=== PATIENT | female | born 1990 | race Hispanic/Latino ===

== ENCOUNTER 2017-09-29 19:48 | Day surgery (SDC) | payer SELFPAY ==
[2017-09-29 20:18] VITALS: BMI 31.6
--- NOTE | 2017-09-29 20:47 | PDOC.LDHP ---
Labor and Delivery H&P Chief complaint: contractions HPI: 27 yo @ 38.4 by 6.1 week US and complicated by GDM presents for evaluation of contractions which started this afternoon around 4pm. Occurring approx every 10-15 minutes, denies LOF, vaginal bleeding, abdominal pain, headache, chest pain, sob, changes in vision. Currently reports that the contractions seem to be spacing out and she is feeling them less. Reports good movement. Did have intercourse earlier today. Current gestational age (weeks): 38 (+4) Due date: 10/09/17 Dating criteria: first trimester ultrasound Current complications: gestational diabetes Abnormal US findings: No Current medications: pre-sania vitamins Previous surgical history: none Social history: none - Physical Exam Vital signs reviewed and normal: yes (abnormal BP taken on small cuff, repeat WNL) General: NAD, breathing through contractions Heart: RRR Lungs: CTAB Abdomen: NTTP Extremeties: trace edema FHT: category 2 (re-assuring, baseline FHR 140), variable decelerations (X1, corrected wiith maternal position change), variability present [place] contractions every: 12 MINUTES - Vaginal Exam cm dilated: 1 (1.5 CM DILATED) Effacement: 25% Station: -3 (POSTERIOR, MEDIUM) - OB Labs Blood type: A RH: positive Antibody Screen: negative HIV: negative RPR: negative HEPSAg: negative 1 hour GCT: positive GBS: unknown Urine drug screen: not done Rubella: immune - Assessment L&D Assessment: term patient in labor (Labor check) Labor check - Plan Plan: observation in L&D -: Labor check: - po hydrate, recheck cervix in 2 hours - cont maternal monitoring - if no cervical change, re-assuring FHR monitoring and decreasing ctx frequency ok for dc to home - maternal position changes prn - GBS unknown, test performed, will send for results if pt to be admitted <Maurisio Santoro - Last Filed: 09/29/17 21:45> <Claudio Bhakta - Last Filed: 09/29/17 22:12> Allergies/Adverse Reactions: Allergies Allergy/AdvReac Type Severity Reaction Status Date / Time No Known Allergies Allergy Verified 09/29/17 20:18 Attending Addendum - Attending Addendum Date/Time: 09/29/17 8931 I personally evaluated the patient and discussed the management with Dr. Santoro. I agree with the History, Examination, Assessment and Plan. <Claudio Bhakta - Last Filed: 09/29/17 22:12>
== END 2017-09-29 23:03 | disposition home or self-care (01) ==
LOC: L&D/OP 19:48
PROVIDERS: ATTEND Obstetrics & Gynecology
DX: O47.1 False labor at or after 37 completed weeks of gestation (principal); O24.419 Gestational diabetes mellitus in pregnancy, unspecified control; Z3A.38 38 weeks gestation of pregnancy
CPT/HCPCS: 99282

== ENCOUNTER 2017-10-01 11:43 | Inpatient (IN) | payer MEDICAID, SELFPAY ==
[2017-10-01 12:17] VITALS: BMI 31.1
[2017-10-01] MEDS ORDERED: Lidocaine 1% (PF) 30 ML VIAL SC PRN (12:45)
[2017-10-01] MEDS ORDERED: Ondansetron HCl/PF 4 MG/2 ML Vial IVP PRN (12:45)
[2017-10-01] MEDS ORDERED: NS / Oxytocin 40 units/1000ml 1,000 ML IV PRN (12:45)
[2017-10-01] MEDS ORDERED: HYDROcodone/Acetaminophen 5/325 mg Tablet PO PRN ×2 (12:45)
[2017-10-01] MEDS ORDERED: Ibuprofen 800 MG TAB PO PRN (12:45)
[2017-10-01] MEDS ORDERED: Butorphanol Tartrate 1 MG/ML VIAL SLOW IVP PRN (12:45)
[2017-10-01] MEDS ORDERED: Lactated Ringer's 1,000 ML IV SCH (12:45)
[2017-10-01] MEDS ORDERED: NS / Oxytocin 40 units/1000ml 1,000 ML ONE (12:50)
[2017-10-01] MEDS ORDERED: Lidocaine 1% (PF) 30 ML VIAL ONE (12:50)
[2017-10-01 13:30] LABS: Hemoglobin 12.4 g/dL (12.0-16.0); Mean Corpuscular HGB CONC 32.7 g/dL (32.0-36.0); Mean Corpuscular Hemoglobin 28.4 pg (27.0-31.0); Mean Corpuscular Volume 86.9 fL (78.0-98.0); Mean Platelet Volume 12.2 fL (7.4-10.4); Platelet Count 126 thou/uL (130-400); RBC Distribution Width 13.1 % (11.5-14.5); Red Blood Cell (RBC) Count 4.37 mill/uL (4.20-5.40); White Blood Cell (WBC) Count 6.8 thou/uL (4.8-10.8)
[2017-10-01 14:12] LABS: HBSAg Index 0.14 S/CO (0-0.99); HIV (1/2) Antibody/Antigen Non-Reactive (NonReactive); HIV 1/2 INDEX 0.08 S/CO (<1.00); Hep B Surf Ag Non-Reactive S/CO (NonReactive)
--- NOTE | 2017-10-01 14:24 | PDOC.LDHP ---
Labor and Delivery H&P Chief complaint: contractions HPI: 27yo Dating criteria: last menstrual period (c/w 6.1wk US), first trimester ultrasound (6w1d) Current complications: gestational diabetes (diet controlled) Abnormal US findings: No (37% by Danielle on 09/06/17) Past Medical History: none Current medications: pre-sania vitamins Previous surgical history: none Allergies/Adverse Reactions: Allergies Allergy/AdvReac Type Severity Reaction Status Date / Time No Known Allergies Allergy Verified 09/29/17 20:18 Social history: none - Physical Exam Vital signs reviewed and normal: yes General: NAD, breathing through contractions Heart: RRR Lungs: nonlabored breathing Abdomen: NTTP Extremeties: no edema FHT: category 1 - Vaginal Exam cm dilated: 7 Effacement: 90% Station: -2 - OB Labs Blood type: A RH: positive Antibody Screen: negative HIV: negative RPR: negative HEPSAg: negative 1 hour GCT: positive (220) GBS: negative Urine drug screen: not done Rubella: immune - Assessment L&D Assessment: term patient in labor - Plan Plan: admit to L&D FMR OB H&P: A/P - Problem List (1) Term Current Visit: Yes Status: Acute Code(s): Z34.80 - ENCOUNTER FOR SUPRVSN OF NORMAL , UNSP TRIMESTER (2) Gestational diabetes Current Visit: Yes Status: Acute Code(s): O24.419 - GESTATIONAL DIABETES MELLITUS IN , UNSP CONTROL Qualifiers: Gestational diabetes mellitus control: diet-controlled Trimester: third trimester Qualified Code(s): O24.410 - Gestational diabetes mellitus in , diet controlled Assessment and Plan: accucheck 76 in labor Disposition: 27yo at 38.6wk here in active labor admit to L&D, expectant mgmt Discussion: Date/Time: 10/01/17 6468 This H&P was discussed with [Sunny Guerra] who agrees with the above documentation and plan.
[2017-10-01 16:37] LABS: Syphilis Antibody Nonreactive (Nonreactive); Syphilis Antibody Index 0.06 S/CO (<1.00 Non-Reactive)
--- NOTE | 2017-10-01 16:41 | PDOC.OPDEL ---
OB Operative/Delivery Note Delivery Dr/Surgeon: Dr. Louise Crump & Dr. Sunny Guerra Pre-Delivery Diagnosis: active labor Procedure/Post Delivery Dx: spontaneous vaginal delivery Weeks gestation: 38 (+4) Anesthesia: none - Findings A Sex: female - 1 min: 9 - 5 min: 9 - Additional Findings/Plan Placenta delivered: spontaneous Repaired Obstetrical Laceration: none Estimated blood loss: 300ml Post delivery plan: routine recovery <Louise Crump - Last Filed: 10/01/17 16:35> Operative Note - Operative Note Operative Note: 27yo F now @ 38.6wks delivered a viable F infant at 1440 on 10/01/17. Following an uneventful antepartum course, a vigorous female was delivered over an intact perineum in the OA position. Anterior Shoulder and then remainder of the body delivered. No nuchal cord. The head was held down and mouth and nares were bulb suctioned. After delayed cord clamping, cord was clamped and cut and cord blood collected. Placenta delivered intact with a 3 vessel cord noted. Fundal massage was performed and the fundus was firm, although noted to be above umbilicus. With fundal massage after delivery, no further bleeding noted. The cervix and vagina were inspected and found to be free of lacerations. went to nursery in good condition for routine care. Apgars were 9 & 9 at 1 & 5 minutes, respectively. Patient tolerated delivery well and went to after routine recovery/care. <Louise Crump - Last Filed: 10/01/17 16:35> Attending Addendum - Attending Addendum Date/Time: 10/02/17217 I personally evaluated the patient and discussed the management with Dr. Crump I agree with the History, Examination, Assessment and Plan documented above with any addition or exceptions noted below. I was present for the entire second and third stages of labor. <Sunny Guerra - Last Filed: 10/02/17 02:19>
--- NOTE | 2017-10-01 16:42 | PDOC.LDPN ---
Labor & Delivery Progress Note - Subjective Subjective: painful contractions - Objective Vital signs reviewed and normal: yes General: NAD, breathing through contractions Uterine fundus: non tender SVE: /-1 FHT: category 1 [place] contractions every: 2 min AROM: clear fluid - Assessment (1) Term Code(s): Z34.80 - ENCOUNTER FOR SUPRVSN OF NORMAL , UNSP TRIMESTER Current Visit: Yes Status: Acute (2) Gestational diabetes Code(s): O24.419 - GESTATIONAL DIABETES MELLITUS IN , UNSP CONTROL Current Visit: Yes Status: Acute Qualifiers: Gestational diabetes mellitus control: diet-controlled Trimester: third trimester Qualified Code(s): O24.410 - Gestational diabetes mellitus in , diet controlled Plan: continue plan of care -: expectant mgmt
[2017-10-01] MEDS ORDERED: diphenhydrAMINE 25 MG CAP PO PRN (17:52)
[2017-10-01] MEDS ORDERED: Adacel (T-DAP) 0.5 ML VIAL IM ONE (17:52)
[2017-10-01] MEDS ORDERED: Lanolin Ointment 7 GM TUBE TOP PRN (17:52)
[2017-10-01] MEDS ORDERED: Benzocaine/Menthol 20-0.5% 60 ML CAN TOP PRN (17:52)
[2017-10-01] MEDS ORDERED: Milk Of Magnesia 30 ML UDCUP PO PRN (17:52)
[2017-10-01] MEDS ORDERED: NS / Oxytocin 40 units/1000ml 1,000 ML IV SCH (17:52)
[2017-10-01] MEDS ORDERED: Bisacodyl 10 MG SUPP PR PRN (17:52)
[2017-10-01] MEDS ORDERED: Preparation H Ointment 28 GM TUBE PR PRN (17:52)
[2017-10-01] MEDS: Lactated Ringer's 1,000 ML IV SCH (18:22)
[2017-10-01] MEDS: Ferrous Sulfate 325 MG TAB PO SCH (18:24)
[2017-10-01] MEDS ORDERED: Methylergonovine 0.2 MG/ML VIAL IM SCH (20:00)
[2017-10-01] MEDS ORDERED: Misoprostol 200 MCG TAB ONE (20:19)
[2017-10-01] MEDS: Ibuprofen 800 MG TAB PO SCH (20:29)
[2017-10-01] MEDS ORDERED: Misoprostol 200 MCG TAB PR SCH (20:30)
[2017-10-01 21:13] LABS: Hemoglobin 9.4 g/dL (12.0-16.0); Mean Corpuscular HGB CONC 34.6 g/dL (32.0-36.0); Mean Corpuscular Hemoglobin 29.9 pg (27.0-31.0); Mean Corpuscular Volume 86.3 fL (78.0-98.0); Mean Platelet Volume 10.9 fL (7.4-10.4); Platelet Count 105 thou/uL (130-400); RBC Distribution Width 12.8 % (11.5-14.5); Red Blood Cell (RBC) Count 3.13 mill/uL (4.20-5.40); White Blood Cell (WBC) Count 9.9 thou/uL (4.8-10.8)
[2017-10-01] MEDS: Docusate Calcium (SURFAK) 240 MG CAP PO SCH (23:47)
[2017-10-02] MEDS: Lactated Ringer's 1,000 ML IV SCH ×4 (00:03→23:59)
[2017-10-02] MEDS: Methylergonovine 0.2 MG TAB PO SCH ×3 (02:14→14:16)
[2017-10-02] MEDS: Ibuprofen 800 MG TAB PO SCH ×3 (06:17→21:36)
[2017-10-02 06:26] LABS: Hemoglobin 9.5 g/dL (12.0-16.0); Mean Corpuscular HGB CONC 34.2 g/dL (32.0-36.0); Mean Corpuscular Hemoglobin 29.7 pg (27.0-31.0); Mean Corpuscular Volume 86.8 fL (78.0-98.0); Mean Platelet Volume 11.5 fL (7.4-10.4); Platelet Count 103 thou/uL (130-400); Red Blood Cell (RBC) Count 3.19 mill/uL (4.20-5.40); White Blood Cell (WBC) Count 7.2 thou/uL (4.8-10.8)
[2017-10-02] MEDS: Ferrous Sulfate 325 MG TAB PO SCH ×2 (09:19→17:09)
[2017-10-02] MEDS: Docusate Calcium (SURFAK) 240 MG CAP PO SCH ×2 (09:19→21:36)
[2017-10-02] MEDS: Prenatal Vitamin 1 TAB PO SCH (09:19)
--- NOTE | 2017-10-02 10:15 | PDOC.PP ---
Post Progress Note Post Day #: 1 Subjective: Pt currently feeling well. overnight, pt was noted to have acute PPH with clots passed in toilet. Exam performed by Dr. Meeks & Dr. Guerra and clots expelled. Methergine & Cytotec given. Hgb 9.5 -->9.4. Pt denies any dizziness, palpitations, weakness, or fatigue; but has not yet tried to get up. PO intake tolerated: yes Flatus: yes Ambulation: no Vital Signs (12 hours) Temp Pulse Resp BP 10/02/17 08:20 99.1 F 62 20 118/66 10/02/17 04:30 97.4 F L 60 20 126/57 L 10/02/17 00:00 99.2 F 62 18 131/77 10/01/17 22:15 98.6 F 63 18 130/77 Weight Weight 77.111 kg - Physical Examination General: NAD Cardiovascular: no m/r/g, RRR Respiratory: clear to auscultation bilaterally, non-labored breathing Abdominal: lochia (min lochia robra), no distention, appropriately TTP Fundus firm & at: 2cm below umbilicus Extremities: negative homans (B) Skin: no rash Perineum: clean & dry Neurological: no gross focal deficits Psychiatric: A&Ox3, normal affect Result Diagrams: 10/02/17 05:19 Additional Labs: Post Labs Blood Type A POSITIVE 10/01/17 12:32 Hep Bs Antigen Non-Reactive S/CO (NonReactive) 10/01/17 12:32 (1) Term Code(s): Z34.80 - ENCOUNTER FOR SUPRVSN OF NORMAL , UNSP TRIMESTER Status: Acute (2) Gestational diabetes Code(s): O24.419 - GESTATIONAL DIABETES MELLITUS IN , UNSP CONTROL Status: Acute QualifierTitle: Gestational diabetes mellitus control: diet-controlled Trimester: third trimester Qualified Code(s): O24.410 - Gestational diabetes mellitus in , diet controlled (3) Grand multiparity in labor and delivery, delivered Code(s): O09.40 - SUPERVISION OF W GRAND MULTIPARITY, UNSP TRIMESTER Status: Acute (4) hemorrhage Code(s): O72.1 - OTHER IMMEDIATE HEMORRHAGE Status: Acute QualifierTitle: hemorrhage type: unspecified Qualified Code(s) : O72.1 - Other immediate hemorrhage Comment: s/p methergine + cytotec - Assessment/Plan PPD #1 s/p with PPH overnight- No further bleeding at this time. Recheck H&H at 1200 to assure equilibration and no further drop. Encourage ambulation with assist to rule out symptomatic anemia. Will determine discharge course based on the above. <Louise Morse - Last Filed: 10/02/17 10:14> Vital Signs (12 hours) Temp Pulse Resp BP 10/02/17 12:20 98.9 F 69 20 116/58 L 10/02/17 08:20 99.1 F 62 20 118/66 10/02/17 08:00 99.1 F 62 20 10/02/17 04:30 97.4 F L 60 20 126/57 L Weight Weight 170 lb Result Diagrams: 10/02/17 05:19 Additional Labs: Post Labs Blood Type A POSITIVE 10/01/17 12:32 Hep Bs Antigen Non-Reactive S/CO (NonReactive) 10/01/17 12:32 - Assessment/Plan FACULTY NOTE: case reviewed this AM with Dr morse and Dr Guerra (wagon driller last night until 0800). We will recheck HCT AM run. Stable. <Jude Pratt - Last Filed: 10/02/17 12:39>
[2017-10-02 12:38] LABS: Hemoglobin 9.2 g/dL (12.0-16.0); Mean Corpuscular HGB CONC 33.3 g/dL (32.0-36.0); Mean Corpuscular Hemoglobin 29.2 pg (27.0-31.0); Mean Corpuscular Volume 87.7 fL (78.0-98.0); Mean Platelet Volume 11.4 fL (7.4-10.4); Platelet Count 101 thou/uL (130-400); RBC Distribution Width 13.2 % (11.5-14.5); Red Blood Cell (RBC) Count 3.14 mill/uL (4.20-5.40); White Blood Cell (WBC) Count 6.2 thou/uL (4.8-10.8)
--- NOTE | 2017-10-02 13:56 | PDOC.EVN ---
Event Note - Event Note Event Note: Rechecked pt again. Subj: feeling well. able to get up and ambulate without lightheadedness, weakness, or palpitations. Fundus remains firm. Very minimal vaginal bleeding without passage of clots. VSS. Laboratory Tests 10/02/17 10/02/17 05:19 12:13 Hgb 9.5 L 9.2 L Hct 27.7 L 27.6 L Discussed options with pt and she elects to stay the night and plan for d/c home tomorrow. <Louise Crump - Last Filed: 10/02/17 13:56> - Event Note Event Note: Faculty: noted plan of care. <Jude Pratt - Last Filed: 10/02/17 14:38>
[2017-10-02] MEDS ORDERED: NS w/ Oxytocin 10 units 500 ML IV SCH (14:15)
--- NOTE | 2017-10-02 14:40 | PDOC.EVN ---
Event Note - Event Note Event Note: Patient has had 3 follow up Hgb checks stable at 9. OK to skip AM draw for HGB.
[2017-10-03] MEDS: Lactated Ringer's 1,000 ML IV SCH (05:41)
[2017-10-03] MEDS: Ibuprofen 800 MG TAB PO SCH (06:13)
--- NOTE | 2017-10-03 08:18 | PDOC.PP ---
Post Progress Note Post Day #: 2 Subjective: Feeling well rested. Denies any concerns. No dizziness, fatigue, weakness. Ready to go home. PO intake tolerated: yes Flatus: yes Ambulation: yes Weight Weight 77.111 kg - Physical Examination General: NAD Cardiovascular: no m/r/g, RRR Respiratory: clear to auscultation bilaterally, non-labored breathing Abdominal: lochia (min lochia rubra), no distention, appropriately TTP Fundus firm & at: umbilicus Extremities: negative homans (B) Skin: no rash Neurological: no gross focal deficits Psychiatric: A&Ox3, normal affect Result Diagrams: 10/02/17 12:13 Additional Labs: Post Labs Blood Type A POSITIVE 10/01/17 12:32 Hep Bs Antigen Non-Reactive S/CO (NonReactive) 10/01/17 12:32 (1) Term Code(s): Z34.80 - ENCOUNTER FOR SUPRVSN OF NORMAL , UNSP TRIMESTER Status: Acute (2) Gestational diabetes Code(s): O24.419 - GESTATIONAL DIABETES MELLITUS IN , UNSP CONTROL Status: Acute QualifierTitle: Gestational diabetes mellitus control: diet-controlled Trimester: third trimester Qualified Code(s): O24.410 - Gestational diabetes mellitus in , diet controlled (3) Grand multiparity in labor and delivery, delivered Code(s): O09.40 - SUPERVISION OF W GRAND MULTIPARITY, UNSP TRIMESTER Status: Acute (4) hemorrhage Code(s): O72.1 - OTHER IMMEDIATE HEMORRHAGE Status: Acute QualifierTitle: hemorrhage type: unspecified Qualified Code(s) : O72.1 - Other immediate hemorrhage Comment: s/p methergine + cytotec - Assessment/Plan PPD #2 s/p with PPH - resolved w/ methergine + cytotec + fundal massage and no further bleeding. H&H stable, pt asymptomatic. Stable for d/c home on iron therapy and f/u outpt within 2 wks at [facility] or prn sooner. <Louise Crump - Last Filed: 10/03/17 08:18> Weight Weight 170 lb Result Diagrams: 10/02/17 12:13 Additional Labs: Post Labs Blood Type A POSITIVE 10/01/17 12:32 Hep Bs Antigen Non-Reactive S/CO (NonReactive) 10/01/17 12:32 <Sunny Guerra - Last Filed: 10/04/17 08:02> Attending Addendum - Attending Addendum Date/Time: 10/04/17 0802 I personally evaluated the patient and discussed the management with Dr. Crump I agree with the History, Examination, Assessment and Plan documented above with any addition or exceptions noted below. <Sunny Guerra - Jarad Filed: 10/04/17 08:02>
[2017-10-03] MEDS: Prenatal Vitamin 1 TAB PO SCH (08:22)
[2017-10-03] MEDS: Docusate Calcium (SURFAK) 240 MG CAP PO SCH (08:22)
[2017-10-03] MEDS: Ferrous Sulfate 325 MG TAB PO SCH (08:22)
[2017-10-03 08:55] VITALS: BP 127/60; TEMP 98
== END 2017-10-03 14:00 | disposition home or self-care (01) | DRG 774 ==
LOC: L&D/OP 11:43 → L&D 12:36 → 3SW 17:40
PROVIDERS: ADMIT Obstetrics & Gynecology; ATTEND Obstetrics & Gynecology
PROC: 10E0XZZ Delivery of Products of Conception, External Approach (ICD-10-PCS; principal; 2017-10-01)
DX: O24.429 Gestational diabetes mellitus in childbirth, unspecified control (principal); O72.1 Other immediate postpartum hemorrhage; Z3A.38 38 weeks gestation of pregnancy; Z37.0 Single live birth
CPT/HCPCS: 36415; 36416; 85027; 86780; 86850; 86900; 86901; 87340; 87389; 99285; J2001; J2210